=== PATIENT | male | born 1935 | race Caucasian/White ===

== ENCOUNTER → 2018-05-27 | Outpatient (CLI) | payer MEDICARE, OTHER ==
[~2018-05-27] MED LIST: AMIO100T4 PO; ASPI-621 PO; BIOT25005 PO; CARV6.252 PO; HYDR-3237 PO; HYDR12.58 PO; IRBE75TA31 PO; NAPR220C2 PO; NIAC500T9 PO; PRAV20TA2 PO; SALM1CAP2 PO; SAW500CA PO; TURM1POW2 PO; UBID200C35 PO; [UNRECOGNIZED DRUG - OTHER] PO
[2018-05-27 15:25] LABS: BASOPHILS # (AUTO) 0.05 x10^3/uL (0-0.1); BASOPHILS % (AUTO) 1 % (0-1); EOSINOPHILS # (AUTO) 0.37 x10^3/uL (0-0.4); EOSINOPHILS % (AUTO) 5 % (1-7); LYMPHOCYTES % (AUTO) 33 % (22-44); MD NO; MEAN CORPUSCULAR HEMOGLOBIN 32.7 pg (27.5-34.5); MEAN CORPUSCULAR HGB CONC 33.9 g/dL (33.2-36.2); MEAN CORPUSCULAR VOLUME 96.3 fL (81-97); MEAN PLATELET VOLUME 8.6 fL (7.4-10.4); MONOCYTES # (AUTO) 0.58 x10^3/uL (0.2-0.8); MONOCYTES % (AUTO) 8 % (2-9); NEUTROPHILS # (AUTO) 3.79 x10^3/uL (1.8-6.8); NEUTROPHILS % (AUTO) 54 % (42-75); PLATELET COUNT 240 x10^3/uL (130-400); RED BLOOD COUNT 4.32 x10^6/uL (4.38-5.82); RED CELL DISTRIBUTION WIDTH 14.1 % (9.4-14.8)
[2018-05-27 15:33] LABS: MICROSCOPIC AUTO
[2018-05-27 15:34] LABS: CALCIUM 8.8 mg/dL (8.5-10.1); CHLORIDE 106 mmol/L (98-107)
[2018-05-27 15:37] LABS: CULTURE INDICATED? NO
[2018-05-27 15:39] LABS: ALANINE AMINOTRANSFERASE 29 U/L (12-78); ALBUMIN 3.8 g/dL (3.4-5.0); ALKALINE PHOSPHATASE 68 U/L (45-117); ANION GAP 6 mmol/L (5-15); BILIRUBIN,TOTAL 0.6 mg/dL (0.2-1.0); CREATININE 1.35 mg/dL (0.7-1.3); TOTAL PROTEIN 6.6 g/dL (6.4-8.2)
[2018-05-27 16:44] LABS: PROTHROMBIN TIME 10.3 Seconds (9.6-11.5)
== END | disposition home or self-care (01) ==
LOC: STAR 14:01
PROVIDERS: ATTEND Orthopaedic Surgery Orthopaedic Surgery of the Spine
DX: Z01.818 Encounter for other preprocedural examination (principal); M51.26 Other intervertebral disc displacement, lumbar region; R00.1 Bradycardia, unspecified
CPT/HCPCS: 36415; 71046; 80053; 81001; 85025; 85610; 85730; 93005

== ENCOUNTER → 2018-06-03 | Outpatient (CLI) | payer MEDICARE, OTHER ==
[~2018-06-03] MED LIST changes: +REGADENOSON 0.4 MG/5 ML SYRINGE ONE
== END | disposition home or self-care (01) ==
LOC: CFH 11:30
PROVIDERS: ATTEND Internal Medicine Cardiovascular Disease
DX: Z01.810 Encounter for preprocedural cardiovascular examination (principal); I25.9 Chronic ischemic heart disease, unspecified; I10 Essential (primary) hypertension; I48.0 Paroxysmal atrial fibrillation; I42.9 Cardiomyopathy, unspecified; Z87.891 Personal history of nicotine dependence
CPT/HCPCS: 78452; 93017; A9502; J2785

== ENCOUNTER 2018-06-12 11:20 | Observation (INO) | payer MEDICARE, OTHER ==
[~2018-06-12] VITALS: Ht 193 cm; Wt 96.1 kg
[~2018-06-12 11:20] MED LIST changes: -REGADENOSON 0.4 MG/5 ML SYRINGE ONE
[2018-06-12 12:10] VITALS: BP 132/70
[2018-06-12] MEDS ORDERED: FENTANYL PF 100 MCG/2ML ONE (14:17)
[2018-06-12] MEDS ORDERED: MIDAZOLAM 1 MG/ML, 5ML ONE (14:17)
[2018-06-12] MEDS ORDERED: LIDOCAINE 1%, 50ML ONE (14:18)
[2018-06-12] MEDS ORDERED: HEPARIN 1,000 UNITS/ML, 10ML ONE (14:18)
[2018-06-12] MEDS ORDERED: TICAGRELOR 90 MG TABLET ONE (14:19)
[2018-06-12] MEDS ORDERED: VERAPAMIL 2.5 MG/ML, 2ML ONE (14:19)
[2018-06-12] MEDS ORDERED: BIVALIRUDIN 250 MG ONE (14:19)
[2018-06-12] MEDS ORDERED: SODIUM CHLORIDE 0.9% 1,000 ML IV SCH (15:32)
[2018-06-12] MEDS ORDERED: HYDROcodone/APAP 5/325 TABLET PO SCH (16:00)
[2018-06-12 20:11] VITALS: BP 144/70
[2018-06-12] MEDS ORDERED: TICAGRELOR 90 MG TABLET PO ONE (21:00)
[2018-06-12] MEDS: CARVEDILOL 6.25 MG TABLET PO SCH (21:00)
[2018-06-12] MEDS ORDERED: ATORVASTATIN 40 MG TABLET PO SCH (21:00)
[2018-06-12 21:06] VITALS: BP 166/78
[2018-06-12] MEDS: HYDROcodone/APAP 5/325 TABLET PO PRN (21:19)
[2018-06-12] MEDS ORDERED: ENALAPRILAT 1.25 MG/ML, 2ML IV PRN (21:30)
[2018-06-12 22:15] VITALS: BP 151/78
[2018-06-13 00:40] VITALS: BP 144/76
[2018-06-13] MEDS: HYDROcodone/APAP 5/325 TABLET PO PRN ×2 (01:49→05:55)
[2018-06-13 05:16] LABS: ALBUMIN 3.3 g/dL (3.4-5.0); ANION GAP 9 mmol/L (5-15); CALCIUM 8.6 mg/dL (8.5-10.1); CHLORIDE 107 mmol/L (98-107); CREATININE 1.28 mg/dL (0.7-1.3)
[2018-06-13 07:20] VITALS: BP 158/78
[2018-06-13] MEDS: ASPIRIN 81 MG TABLET EC PO SCH ×2 (08:29→08:31)
[2018-06-13] MEDS: CARVEDILOL 6.25 MG TABLET PO SCH (08:29)
[2018-06-13] MEDS ORDERED: IRBESARTAN 150 MG TABLET PO SCH (09:00)
[2018-06-13] MEDS ORDERED: HYDROCHLOROTHIAZIDE 12.5 MG CAPSULE PO SCH (09:00)
[2018-06-13] MEDS ORDERED: AMIODARONE 200 MG TABLET PO SCH (09:00)
[2018-06-13] MEDS ORDERED: ASPIRIN 81 MG TABLET EC PO SCH (09:00)
[2018-06-13] MEDS ORDERED: CLOPIDOGREL 75 MG TABLET PO SCH (09:00)
[2018-06-13] MEDS ORDERED: CLOP75TA PO (09:44)
== END 2018-06-13 11:12 | disposition home or self-care (01) ==
LOC: CACL 11:20 → 5SO 15:32 → DCLOUNGE 06-13 10:54
PROVIDERS: ADMIT Internal Medicine Cardiovascular Disease; ATTEND Internal Medicine Cardiovascular Disease
DX: I48.0 Paroxysmal atrial fibrillation (principal); E78.5 Hyperlipidemia, unspecified; I10 Essential (primary) hypertension; Z79.899 Other long term (current) drug therapy
CPT/HCPCS: 36415; 80048; 82040; 85014; 85018; 93458; 93571; 96374; C1725; C1769; C1874; C1887; C1894; C9600; G0378; J0583; J2250; J3010; J3490; Q9967; J1644